=== PATIENT | male | born 1980 | race Hispanic/Latino ===

== ENCOUNTER 2016-08-06 07:00 | Day surgery (SDC) | payer OTHER ==
[~2016-08-06] VITALS: Ht 160 cm; Wt 73.0 kg
[~2016-08-06 07:00] MED LIST: OMEP20CA11 PO; RANI150C4 PO; Sodium Chloride LOK Flush 10 mL Syringe IV PRN; fentaNYL-PF 50 mCg/mL 2 mL Inj IVPUSH PRN
[2016-08-06 07:24] VITALS: BP 117/80; PULSE 77; RESP 16; O2SAT 99
[2016-08-06] MEDS ORDERED: 0.9% Sodium Chloride 1,000 ML ONE (07:37)
[2016-08-06 08:22] VITALS: BP 95/62; PULSE 80; RESP 14; O2SAT 97
[2016-08-06 08:29] VITALS: BP 103/48; PULSE 77; RESP 14; O2SAT 97
[2016-08-06 08:38] VITALS: BP 100/69; PULSE 68; RESP 14; O2SAT 98
--- NOTE | 2016-08-06 11:21 | ENDO ---
[address] [address] ENDOSCOPY PROCEDURE PATIENT: UMA SWANSON : 1980 MR#: [id number] ADMIT: 08/06/2016 JOB ID: [id number] TYPE OF OPERATION: Esophagogastroduodenoscopy with biopsy and colonoscopy. PREOPERATIVE DIAGNOSIS(ES): Epigastric pain and occult positive stools. POSTOPERATIVE DIAGNOSIS(ES): 1. Normal upper endoscopy. Status post biopsy. 2. Normal colonoscopy. ANESTHESIA: Fentanyl 125 mcg and Versed 7 mg IV administered. COMPLICATIONS: None. BLOOD LOSS: Minimal. DESCRIPTION OF PROCEDURE: After risks and benefits were explained to the patient, informed consent was obtained. After anesthesia was administered, the upper endoscope was inserted into the mouth, intubating through the esophagus, stomach, and second portion of duodenum. Mucosa carefully examined. After procedure was done, the scope was withdrawn and the procedure terminated. Colonoscope was inserted through the rectum to the cecum. Mucosa carefully examined. Prep of the patient was excellent. After procedure was done, the scope was withdrawn and the procedure terminated. FINDINGS: Upon inspection of the esophagus, the esophagus is normal, without masses, ulcers, or lesions. Z-line located at 35 cm from the incisors. Upon entering the stomach, the stomach was normal, without masses, ulcers, or lesions. Retroflexion was normal. Duodenal bulb, first and second portions normal. Biopsies taken antrum and body of stomach. Upon inspection of the anus, no masses, hemorrhoids, ulcers, or fissures that were seen. Throughout the entire examination there are no polyps, masses, or lesions. Retroflexion normal. IMPRESSIONS: Normal upper endoscopy. Normal colonoscopy. RECOMMENDATION: Await pathology results. Follow up in the GI Clinic as needed.
--- NOTE | 2016-08-09 15:52 | PATH ---
SURGICAL PATHOLOGY Attending Physician:Chan Vargas MD CASE STATUS: Signed Out PATIENT NAME: UMA SWANSON PID: [id number] : 1980 DATE COLLECTED:08/06/2016 17:55 SPECIMEN: 1: Stomach, Antrum, Biopsy 2: Gastric, Biopsy CLINICAL HISTORY: 1). ANTRAL BIOPSY 2). GASTRIC BIOPSY FINAL DIAGNOSIS: 1-2. Stomach, Antral, Gastric, Biopsies: Antral and body-type mucosa with no diagnostic abnormality. Negative for Helicobacter organisms. Negative for intestinal metaplasia. Negative for dysplasia and malignancy. ICD10: R10.9 GROSS DESCRIPTION: The specimen is received in two formalin filled containers labeled with the patient's name. 1). The specimen is sublabeled "antral" and consists of 2 portions of tissue which aggregate to 0.4 x 0.4 x 0.2 CM. The specimen is entirely submitted in cassette 1A. 2). The specimen is sublabeled "gastric" and consists of 2 portions of tissue which aggregate to 0.4 x 0.3 x 0.3 CM. The specimen is entirely submitted in cassette 2A. 08/06/2016 [facility] ICD-9 CODES: CPT CODES: 1: 75754 2: 98030 Electronically Signed Out Marlena Steward MD [facility] Pathology [facility] [address], [place] [address] Technical component performed at [facility], [address] [place] [address] Ave[address], [place], [address]
== END 2016-08-06 23:59 | disposition home or self-care (01) ==
LOC: END 07:00
PROVIDERS: ATTEND Internal Medicine Gastroenterology
DX: R10.33 Periumbilical pain (principal); R19.5 Other fecal abnormalities; G89.29 Other chronic pain; M54.32 Sciatica, left side
CPT/HCPCS: 43239; 45380; G0500; J2250; J3010; J7030